=== PATIENT | female | born 1980 | race African-American/Black ===

== ENCOUNTER 2016-12-27 00:12 | Emergency (ER) | payer BC ==
[~2016-12-27] VITALS: Ht 167.6 cm; Wt 120.5 kg
[~2016-12-27 00:12] MED LIST: NO HOME MEDICATIONS
[2016-12-27 00:14] VITALS: TEMP 98.4
[2016-12-27] MEDS ORDERED: CEPHALEXIN250 M1 PO (00:20)
[2016-12-27 01:10] LABS: BASO % 0.6 % (0.0-2.0); EOS # 0.1 (0.0-0.7); EOS % 1.8 % (0-4.0); GRAN # 2.1 (1.4-6.5); GRAN % 43.1 % (42.2-75.2); LYMPH # 2.2 (1.2-3.4); LYMPH % 44.8 % (20.0-51.0); MEAN CELL VOLUME 90 fl (80.0-100.0); MEAN CORPUSCULAR HEMOGLOBIN 29 pg (27.0-31.0); MEAN CORPUSCULAR HGB CONC 33 g/dl (33.0-37.0); MEAN PLATELET VOLUME 9.9 fl (7.4-10.4); MONO # 0.5 (0.1-0.6); MONO % 9.5 % (1.7-9.3); PLATELET COUNT 296 K/mm3 (130-400); RED BLOOD COUNT 4.47 M/mm3 (4.10-5.30); REDCELL DISTRIBUTION WIDTH-CV 12.9 % (11.5-14.5)
[2016-12-27 01:14] LABS: PH 5 (5-8); SQUAMOUS EPITHELIAL 0-2 /hpf; URINE APPEARANCE Clear; URINE BACTERIA Rare /hpf; URINE BILIRUBIN Negative (NEGATIVE); URINE BLOOD 3+ (NEGATIVE); URINE COLOR Yellow; URINE GLUCOSE Negative (NEGATIVE); URINE KETONE Negative (NEGATIVE); URINE RBC >50 /hpf; URINE UROBILINOGEN Negative (NEGATIVE); URINE WBC 0-2 /hpf
[2016-12-27 01:22] LABS: ADJUSTED CALCIUM 8.8 mg/dL (8.4-10.2); ALANINE AMINOTRANSFERASE 67 U/L (9-52); ALBUMIN 4.4 gm/dL (3.5-5.0); ALKALINE PHOSPHATASE 60 U/L (50-136); ANION GAP 12 mmol/L (7-16); BILIRUBIN,TOTAL 0.4 mg/dL (0.0-1.0); BLOOD UREA NITROGEN 10 mg/dL (7-17); CALCIUM 9.1 mg/dL (8.4-10.2); CARBON DIOXIDE 24 mmol/L (22-30); CHLORIDE 104 mmol/L (98-107); CREATININE, serum 0.85 mg/dL (0.52-1.25); GLUCOSE 115 mg/dL (74-106); LIPASE 179 U/L (23-300); POTASSIUM 3.9 mmol/L (3.4-5.0); SODIUM 140 mmol/L (137-145); TOTAL PROTEIN 8.1 gm/dL (6.4-8.2)
[2016-12-27 01:23] LABS: C-REACTIVE PROTEIN < 0.5 mg/dL (0.0-0.9)
[2016-12-27] MEDS ORDERED: NORCO 325 MG-51 TAB PO (03:00)
[2016-12-27 03:06] VITALS: BP 147/83; PULSE 61
[2016-12-27 05:09] LABS: CHLAMYDIA/TRACH by PCR Female NOT DETECTED; NEISSERIA GON by PCR Female NOT DETECTED
== END 2016-12-27 03:18 | disposition home or self-care (01) ==
LOC: COL.ER 00:12
PROVIDERS: Emergency Medicine
DX: N93.8 Other specified abnormal uterine and vaginal bleeding (principal); Z98.890 Other specified postprocedural states
CPT/HCPCS: Q9967

== ENCOUNTER 2016-12-31 06:46 | Emergency (ER) | payer BC ==
[~2016-12-31] VITALS: Ht 167.6 cm; Wt 118.2 kg
[~2016-12-31 06:46] MED LIST changes: +CEPHALEXIN250 M1 PO; +NORCO 325 MG-51 TAB PO
[2016-12-31 06:48] VITALS: BP 130/91; PULSE 69; TEMP 98.4
[2016-12-31 07:49] LABS: BASO % 0.4 % (0.0-2.0); EOS # 0.1 (0.0-0.7); EOS % 2.2 % (0-4.0); GRAN # 1.6 (1.4-6.5); HEMATOCRIT 41.3 % (37.0-47.0); HEMOGLOBIN 13.6 g/dl (12.5-16.0); LYMPH # 2.5 (1.2-3.4); LYMPH % 53.8 % (20.0-51.0); MEAN CELL VOLUME 88 fl (80.0-100.0); MEAN CORPUSCULAR HEMOGLOBIN 29 pg (27.0-31.0); MEAN CORPUSCULAR HGB CONC 33 g/dl (33.0-37.0); MEAN PLATELET VOLUME 10.2 fl (7.4-10.4); MONO # 0.4 (0.1-0.6); MONO % 9.6 % (1.7-9.3); PLATELET COUNT 327 K/mm3 (130-400); RED BLOOD COUNT 4.67 M/mm3 (4.10-5.30); REDCELL DISTRIBUTION WIDTH-CV 12.8 % (11.5-14.5); WHITE BLOOD COUNT 4.6 K/mm3 (4.8-10.8)
[2016-12-31 08:01] LABS: CALCIUM 9.1 mg/dL (8.4-10.2); CREATININE, serum 0.83 mg/dL (0.52-1.25); POTASSIUM 3.5 mmol/L (3.4-5.0)
== END 2016-12-31 08:20 | disposition home or self-care (01) ==
LOC: COL.ER 06:46
PROVIDERS: Nurse Practitioner
DX: I80.8 Phlebitis and thrombophlebitis of other sites (principal); R20.2 Paresthesia of skin

== ENCOUNTER 2017-05-27 10:04 | Inpatient (IN) | payer BC ==
[~2017-05-27] VITALS: Ht 165.1 cm; Wt 127.6 kg
[2017-05-27 11:26] LABS: HEMATOCRIT 38.1 % (37.0-47.0); HEMOGLOBIN 12.6 g/dl (12.5-16.0); MEAN CELL VOLUME 89 fl (80.0-100.0); MEAN CORPUSCULAR HEMOGLOBIN 29 pg (27.0-31.0); MEAN CORPUSCULAR HGB CONC 33 g/dl (33.0-37.0); MEAN PLATELET VOLUME 9.7 fl (7.4-10.4); PLATELET COUNT 303 K/mm3 (130-400); REDCELL DISTRIBUTION WIDTH-CV 12.9 % (11.5-14.5)
[2017-05-27 11:39] LABS: BILIRUBIN,TOTAL 0.8 mg/dL (0.0-1.0); C-REACTIVE PROTEIN 3.5 mg/dL (0.0-0.9); CALCIUM 8.7 mg/dL (8.4-10.2); CREATININE, serum 2.05 mg/dL (0.52-1.25); MAGNESIUM 1.1 mg/dL (1.6-2.3); PHOSPHOROUS 1.9 mg/dL (2.5-4.5); POTASSIUM 4.1 mmol/L (3.4-5.0); TOTAL PROTEIN 7.4 gm/dL (6.4-8.2)
[2017-05-27 11:46] LABS: BAND 35 % (0-10); NEUTROPHILS 63 % (42.0-75.2)
[2017-05-27 11:47] LABS: STOMATOCYTE 3+
[2017-05-27 11:48] LABS: PLATELET ESTIMATE NORMAL (NORMAL)
[2017-05-27 11:49] LABS: INFLUENZA A NEGATIVE; INFLUENZA B NEGATIVE
[2017-05-27 14:27] LABS: ARTERIAL BLD GAS O2 SATURATION 96.3 % (92-100); ARTERIAL BLD GAS TCO2 CT 16.5; ARTERIAL BLOOD GAS BASE EXCESS -7.9 (-2-2); ARTERIAL BLOOD GAS HCO3 15.7 meq/L (22-26); ARTERIAL BLOOD GAS PCO2 27.1 mmHg (35-45); ARTERIAL BLOOD GAS PO2 86.2 mmHg (80-100); ARTERIAL BLOOD GAS pH 7.38 (7.35-7.45)
[2017-05-27 14:47] LABS: COLLECTION METHOD CLEAN CATCH
[2017-05-27 14:55] LABS: HYALINE CAST >12 /lpf; MUCOUS Present /lpf; PH 5 (5-8); URINE APPEARANCE Cloudy; URINE BACTERIA Moderate /hpf; URINE BILIRUBIN Negative (NEGATIVE); URINE BLOOD Negative (NEGATIVE); URINE COLOR Amber; URINE GLUCOSE 1+ (NEGATIVE); URINE KETONE Trace (NEGATIVE); URINE LEUKOCYTE ESTERASE Trace (NEGATIVE); URINE NITRATE Negative (NEGATIVE); URINE PROTEIN(semi-quant) 3+ (NEGATIVE)
[2017-05-27 16:21] LABS: CSF APPEARANCE HAZY; CSF COLOR PINK; CSF MONONUCLEAR 84 % (70-100); CSF POLYMORPHONUCLEAR 16 % (0-6); CSF RBC 3000 /mm3 (0-0)
[2017-05-27 16:22] LABS: CSF APPEARANCE HAZY; CSF COLOR PINK; CSF MONONUCLEAR 18 % (70-100); CSF POLYMORPHONUCLEAR 82 % (0-6); CSF RBC 3000 /mm3 (0-0)
[2017-05-27 16:24] LABS: GLUCOSE,CSF 107 mg/dL (40-70); TOTAL PROTEIN,CSF 21 mg/dL (15-45)
[2017-05-27 20:00] VITALS: BP 105/46; PULSE 110; TEMP 98
[2017-05-27 20:19] VITALS: BP 105/46; PULSE 110; TEMP 98
[2017-05-28] VITALS: BP 105/59; PULSE 117; TEMP 101.3
[2017-05-28 00:58] LABS: COLLECTION METHOD CLEAN CATCH
[2017-05-28 01:00] LABS: INR 1.4 (0.8-3.0); PROTHROMBIN TIME 15.8 SECONDS (9.7-12.8)
[2017-05-28 01:03] LABS: PARTIAL THROMBOPLASTIN TIME 28.8 SECONDS (26.0-37.0)
[2017-05-28 01:05] LABS: MUCOUS Present /lpf; PH 5 (5-8); SQUAMOUS EPITHELIAL 0-2 /hpf; URINE APPEARANCE Clear; URINE BACTERIA Occasional /hpf; URINE BILIRUBIN Negative (NEGATIVE); URINE BLOOD Negative (NEGATIVE); URINE COLOR Yellow; URINE GLUCOSE Negative (NEGATIVE); URINE KETONE Negative (NEGATIVE); URINE LEUKOCYTE ESTERASE Negative (NEGATIVE); URINE NITRATE Negative (NEGATIVE); URINE PROTEIN(semi-quant) Negative (NEGATIVE); URINE RBC 0-2 /hpf; URINE UROBILINOGEN Negative (NEGATIVE); URINE WBC 0-2 /hpf
[2017-05-28 01:09] LABS: CALCIUM 7.6 mg/dL (8.4-10.2); CREATININE, serum 1.58 mg/dL (0.52-1.25); POTASSIUM 4.2 mmol/L (3.4-5.0)
[2017-05-28 04:00] VITALS: BP 95/54; PULSE 112; TEMP 99.9
[2017-05-28 06:03] LABS: HEMATOCRIT 37.6 % (37.0-47.0); HEMOGLOBIN 12.1 g/dl (12.5-16.0); MEAN CELL VOLUME 90 fl (80.0-100.0); MEAN CORPUSCULAR HEMOGLOBIN 29 pg (27.0-31.0); MEAN CORPUSCULAR HGB CONC 32 g/dl (33.0-37.0); MEAN PLATELET VOLUME 9.8 fl (7.4-10.4); PLATELET COUNT 247 K/mm3 (130-400); RED BLOOD COUNT 4.17 M/mm3 (4.10-5.30); REDCELL DISTRIBUTION WIDTH-CV 13.2 % (11.5-14.5)
[2017-05-28 06:12] LABS: CALCIUM 7.5 mg/dL (8.4-10.2); CHOLESTEROL RISK RATIO 4.7; CREATININE, serum 1.51 mg/dL (0.52-1.25); MAGNESIUM 3.3 mg/dL (1.6-2.3); PHOSPHOROUS 3.4 mg/dL (2.5-4.5); POTASSIUM 4.6 mmol/L (3.4-5.0)
[2017-05-28 06:37] LABS: BAND 71 % (0-10); EOSINOPHIL 4 % (0-4); LYMPHOCYTE 2 % (20.0-51.0); NEUTROPHILS 19 % (42.0-75.2); PLATELET ESTIMATE NORMAL (NORMAL)
[2017-05-28 06:38] LABS: DOHLE BODIES PRESENT
[2017-05-28 09:00] VITALS: BP 112/52; PULSE 106; TEMP 99.2
[2017-05-28 12:30] VITALS: BP 116/56; PULSE 88; TEMP 99.3
[2017-05-28 16:03] VITALS: BP 113/60; PULSE 91; TEMP 97.7
[2017-05-28 19:10] VITALS: BP 109/31; PULSE 87; TEMP 98.7
[2017-05-29 03:37] VITALS: BP 122/74; PULSE 77; TEMP 98.6
[2017-05-29 07:00] LABS: BASO % 0.1 % (0.0-2.0); EOS # 0.4 (0.0-0.7); EOS % 5.9 % (0-4.0); GRAN # 5.8 (1.4-6.5); LYMPH # 0.8 (1.2-3.4); LYMPH % 10.7 % (20.0-51.0); MEAN CELL VOLUME 90 fl (80.0-100.0); MEAN CORPUSCULAR HGB CONC 33 g/dl (33.0-37.0); MEAN PLATELET VOLUME 10.2 fl (7.4-10.4); MONO # 0.4 (0.1-0.6); PLATELET COUNT 210 K/mm3 (130-400); RED BLOOD COUNT 3.54 M/mm3 (4.10-5.30); REDCELL DISTRIBUTION WIDTH-CV 13.4 % (11.5-14.5)
[2017-05-29 07:06] LABS: HEMATOCRIT 31.8 % (37.0-47.0); HEMOGLOBIN 10.4 g/dl (12.5-16.0); MEAN CORPUSCULAR HEMOGLOBIN 29 pg (27.0-31.0)
[2017-05-29 07:10] LABS: CALCIUM 7.5 mg/dL (8.4-10.2); CREATININE, serum 0.83 mg/dL (0.52-1.25); MAGNESIUM 2.5 mg/dL (1.6-2.3); POTASSIUM 4.3 mmol/L (3.4-5.0)
[2017-05-29 07:59] VITALS: BP 122/77; PULSE 73; TEMP 97.6
[2017-05-29 13:41] VITALS: BP 121/64
== END 2017-05-29 13:41 | disposition home or self-care (01) | DRG 682 ==
LOC: COL.ER 10:04 → ICU 15:39 → MEDICAL 05-28 17:30
PROVIDERS: Emergency Medicine; Internal Medicine
PROC: 009U3ZX Drainage of Spinal Canal, Percutaneous Approach, Diagnostic (ICD-10-PCS; principal; 2017-05-27)
DX: N17.9 Acute kidney failure, unspecified (principal); R65.11 Systemic inflammatory response syndrome (SIRS) of non-infectious origin with acute organ dysfunction; G03.0 Nonpyogenic meningitis; E87.1 Hypo-osmolality and hyponatremia; E87.2 Acidosis; T37.0X5A Adverse effect of sulfonamides, initial encounter; E83.42 Hypomagnesemia; E83.39 Other disorders of phosphorus metabolism; E11.9 Type 2 diabetes mellitus without complications; H10.33 Unspecified acute conjunctivitis, bilateral
CPT/HCPCS: 99223-AI; 99233-AI; 99238; A9539; A9540; J1200; J1644; J1956; J2405; J3370; J3475; J7030; J7050

== ENCOUNTER → 2017-06-05 | Outpatient (CLI) | payer BC ==
[2017-06-05 16:36] LABS: BASO # 0.1 (0.0-0.2); BASO % 0.9 % (0.0-2.0); EOS # 0.1 (0.0-0.7); EOS % 1.8 % (0-4.0); GRAN # 3.3 (1.4-6.5); GRAN % 49.4 % (42.2-75.2); HEMATOCRIT 40.8 % (37.0-47.0); HEMOGLOBIN 13.1 g/dl (12.5-16.0); LYMPH # 2.4 (1.2-3.4); LYMPH % 36.2 % (20.0-51.0); MEAN CELL VOLUME 91 fl (80.0-100.0); MEAN CORPUSCULAR HEMOGLOBIN 29 pg (27.0-31.0); MEAN CORPUSCULAR HGB CONC 32 g/dl (33.0-37.0); MEAN PLATELET VOLUME 9.9 fl (7.4-10.4); MONO # 0.7 (0.1-0.6); MONO % 10.5 % (1.7-9.3); PLATELET COUNT 425 K/mm3 (130-400); RED BLOOD COUNT 4.51 M/mm3 (4.10-5.30); REDCELL DISTRIBUTION WIDTH-CV 13.2 % (11.5-14.5); RETIC # 0.13 M/mm3 (0.02-0.16)
[2017-06-05 16:41] LABS: ALBUMIN 4.5 gm/dL (3.5-5.0); CALCIUM 9.5 mg/dL (8.4-10.2); CREATININE, serum 0.89 mg/dL (0.52-1.25); PHOSPHOROUS 2.5 mg/dL (2.5-4.5); POTASSIUM 3.8 mmol/L (3.4-5.0)
== END ==
LOC: COL.LAB 10:57
PROVIDERS: Family Medicine
DX: D64.9 Anemia, unspecified (principal); E83.39 Other disorders of phosphorus metabolism

== ENCOUNTER 2017-06-23 17:40 | Emergency (ER) | payer BC ==
[~2017-06-23] VITALS: Ht 165.1 cm; Wt 118.2 kg
[2017-06-23 19:12] LABS: COLLECTION METHOD CLEAN CATCH
[2017-06-23 19:15] LABS: BASO % 0.6 % (0.0-2.0); EOS # 0.1 (0.0-0.7); EOS % 1.8 % (0-4.0); GRAN # 2.6 (1.4-6.5); GRAN % 39.6 % (42.2-75.2); HEMATOCRIT 43.2 % (37.0-47.0); LYMPH # 3.1 (1.2-3.4); LYMPH % 46.8 % (20.0-51.0); MEAN CELL VOLUME 89 fl (80.0-100.0); MEAN CORPUSCULAR HEMOGLOBIN 29 pg (27.0-31.0); MEAN CORPUSCULAR HGB CONC 32 g/dl (33.0-37.0); MEAN PLATELET VOLUME 9.6 fl (7.4-10.4); MONO # 0.7 (0.1-0.6); MONO % 10.9 % (1.7-9.3); PLATELET COUNT 422 K/mm3 (130-400); RED BLOOD COUNT 4.83 M/mm3 (4.10-5.30); REDCELL DISTRIBUTION WIDTH-CV 13.1 % (11.5-14.5)
[2017-06-23 19:17] LABS: PH 6 (5-8); SQUAMOUS EPITHELIAL 0-2 /hpf; URINE APPEARANCE Clear; URINE BACTERIA Rare /hpf; URINE BILIRUBIN Negative (NEGATIVE); URINE BLOOD 3+ (NEGATIVE); URINE COLOR Straw; URINE GLUCOSE Negative (NEGATIVE); URINE KETONE Trace (NEGATIVE); URINE LEUKOCYTE ESTERASE Negative (NEGATIVE); URINE NITRATE Negative (NEGATIVE); URINE PROTEIN(semi-quant) Negative (NEGATIVE); URINE RBC 0-2 /hpf; URINE UROBILINOGEN Negative (NEGATIVE); URINE WBC 0-2 /hpf
[2017-06-23 19:22] LABS: PROTHROMBIN TIME 11.4 SECONDS (9.7-12.8)
[2017-06-23 19:33] LABS: ALBUMIN 5.3 gm/dL (3.5-5.0); BILIRUBIN,TOTAL 0.6 mg/dL (0.0-1.0); CALCIUM 9.9 mg/dL (8.4-10.2); CREATININE, serum 0.84 mg/dL (0.52-1.25); POTASSIUM 3.3 mmol/L (3.4-5.0); TOTAL PROTEIN 9.7 gm/dL (6.4-8.2)
[2017-06-23 19:59] LABS: INFLUENZA A NEGATIVE; INFLUENZA B NEGATIVE
[2017-06-23 20:00] LABS: TSH w REFLEX 0.831 uIU/mL (0.465-4.680)
[2017-06-23 20:18] VITALS: TEMP 98.3
[2017-06-23 22:53] VITALS: BP 159/91; PULSE 71
== END 2017-06-23 22:55 | disposition home or self-care (01) ==
LOC: COL.ER 17:40
PROVIDERS: Emergency Medicine
DX: E87.6 Hypokalemia (principal); R79.89 Other specified abnormal findings of blood chemistry; R20.2 Paresthesia of skin; R41.0 Disorientation, unspecified
CPT/HCPCS: J7030

== ENCOUNTER 2017-06-28 07:42 | Emergency (ER) | payer BC ==
[~2017-06-28] VITALS: Ht 165.1 cm; Wt 118.2 kg
[2017-06-28 08:58] LABS: BASO % 0.7 % (0.0-2.0); EOS % 0.5 % (0-4.0); GRAN # 3.1 (1.4-6.5); GRAN % 54.7 % (42.2-75.2); HEMATOCRIT 41.3 % (37.0-47.0); HEMOGLOBIN 13.6 g/dl (12.5-16.0); LYMPH # 1.9 (1.2-3.4); LYMPH % 32.6 % (20.0-51.0); MEAN CELL VOLUME 88 fl (80.0-100.0); MEAN CORPUSCULAR HEMOGLOBIN 29 pg (27.0-31.0); MEAN CORPUSCULAR HGB CONC 33 g/dl (33.0-37.0); MEAN PLATELET VOLUME 9.6 fl (7.4-10.4); MONO # 0.7 (0.1-0.6); MONO % 11.3 % (1.7-9.3); PLATELET COUNT 352 K/mm3 (130-400); RED BLOOD COUNT 4.72 M/mm3 (4.10-5.30); REDCELL DISTRIBUTION WIDTH-CV 12.9 % (11.5-14.5)
[2017-06-28 09:06] LABS: ALANINE AMINOTRANSFERASE 124 U/L (9-52); ALBUMIN 5.1 gm/dL (3.5-5.0); ALKALINE PHOSPHATASE 72 U/L (50-136); ANION GAP 15 mmol/L (7-16); AST,SGOT 91 U/L (15-37); BILIRUBIN,TOTAL 0.8 mg/dL (0.0-1.0); BLOOD UREA NITROGEN 5 mg/dL (7-17); CALCIUM 9.9 mg/dL (8.4-10.2); CARBON DIOXIDE 20 mmol/L (22-30); CHLORIDE 101 mmol/L (98-107); CREATININE, serum 0.86 mg/dL (0.52-1.25); GLUCOSE 144 mg/dL (74-106); LIPASE 93 U/L (23-300); MAGNESIUM 1.8 mg/dL (1.6-2.3); PHOSPHOROUS 3.4 mg/dL (2.5-4.5); SODIUM 136 mmol/L (137-145); TOTAL PROTEIN 9.1 gm/dL (6.4-8.2)
[2017-06-28 09:09] LABS: C-REACTIVE PROTEIN < 0.5 mg/dL (0.0-0.9)
[2017-06-28 09:24] LABS: ERYTHROCYTE SEDIMENTATION RATE 7 mm/hr (0-20)
[2017-06-28 09:32] LABS: COLLECTION METHOD CLEAN CATCH
[2017-06-28 09:40] LABS: PH 6 (5-8); SQUAMOUS EPITHELIAL 0-2 /hpf; URINE APPEARANCE Clear; URINE BACTERIA Occasional /hpf; URINE BILIRUBIN Negative (NEGATIVE); URINE BLOOD Negative (NEGATIVE); URINE COLOR Straw; URINE GLUCOSE Negative (NEGATIVE); URINE KETONE Negative (NEGATIVE); URINE LEUKOCYTE ESTERASE Negative (NEGATIVE); URINE NITRATE Negative (NEGATIVE); URINE PROTEIN(semi-quant) Negative (NEGATIVE); URINE RBC 0-2 /hpf; URINE UROBILINOGEN Negative (NEGATIVE)
[2017-06-28 10:19] VITALS: BP 145/97; PULSE 72; TEMP 98.3
== END 2017-06-28 10:16 | disposition home or self-care (01) ==
LOC: COL.ER 07:42
PROVIDERS: Physician Assistant
DX: R53.81 Other malaise (principal); E66.9 Obesity, unspecified; Z68.41 Body mass index [BMI] 40.0-44.9, adult

== ENCOUNTER → 2017-06-30 | Outpatient (CLI) | payer BC ==
[2017-06-30 17:22] LABS: CALCIUM 10.3 mg/dL (8.4-10.2); CREATININE, serum 0.86 mg/dL (0.52-1.25); MAGNESIUM 1.9 mg/dL (1.6-2.3); POTASSIUM 4.1 mmol/L (3.4-5.0)
== END ==
LOC: COL.LAB 15:36
PROVIDERS: Family Medicine
DX: M62.838 Other muscle spasm (principal); Z88.1 Allergy status to other antibiotic agents; Z88.2 Allergy status to sulfonamides

== ENCOUNTER 2017-07-08 06:09 | Emergency (ER) | payer BC ==
[~2017-07-08] VITALS: Ht 165.1 cm; Wt 105.9 kg
[2017-07-08 07:30] LABS: BASO % 0.7 % (0.0-2.0); EOS % 0.7 % (0-4.0); GRAN # 2.6 (1.4-6.5); GRAN % 47.7 % (42.2-75.2); HEMATOCRIT 39.3 % (37.0-47.0); LYMPH # 2.1 (1.2-3.4); LYMPH % 39.2 % (20.0-51.0); MEAN CELL VOLUME 88 fl (80.0-100.0); MEAN CORPUSCULAR HEMOGLOBIN 29 pg (27.0-31.0); MEAN CORPUSCULAR HGB CONC 33 g/dl (33.0-37.0); MEAN PLATELET VOLUME 9.5 fl (7.4-10.4); MONO # 0.6 (0.1-0.6); MONO % 11.5 % (1.7-9.3); PLATELET COUNT 327 K/mm3 (130-400); RED BLOOD COUNT 4.46 M/mm3 (4.10-5.30); REDCELL DISTRIBUTION WIDTH-CV 12.6 % (11.5-14.5)
[2017-07-08 07:45] LABS: ALANINE AMINOTRANSFERASE 85 U/L (9-52); ALBUMIN 4.5 gm/dL (3.5-5.0); ALKALINE PHOSPHATASE 61 U/L (50-136); ANION GAP 14 mmol/L (7-16); AST,SGOT 56 U/L (15-37); BILIRUBIN,TOTAL 0.6 mg/dL (0.0-1.0); BLOOD UREA NITROGEN 4 mg/dL (7-17); C-REACTIVE PROTEIN < 0.5 mg/dL (0.0-0.9); CALCIUM 9.7 mg/dL (8.4-10.2); CARBON DIOXIDE 22 mmol/L (22-30); CHLORIDE 102 mmol/L (98-107); CREATININE, serum 0.87 mg/dL (0.52-1.25); GLUCOSE 120 mg/dL (74-106); POTASSIUM 3.9 mmol/L (3.4-5.0); SODIUM 138 mmol/L (137-145)
[2017-07-08 07:46] LABS: COLLECTION METHOD CLEAN CATCH
[2017-07-08 07:52] LABS: MUCOUS Present /lpf; PH 6 (5-8); SQUAMOUS EPITHELIAL 0-2 /hpf; URINE APPEARANCE Clear; URINE BACTERIA Rare /hpf; URINE BILIRUBIN Negative (NEGATIVE); URINE BLOOD Negative (NEGATIVE); URINE COLOR Straw; URINE GLUCOSE Negative (NEGATIVE); URINE KETONE Negative (NEGATIVE); URINE LEUKOCYTE ESTERASE Negative (NEGATIVE); URINE NITRATE Negative (NEGATIVE); URINE PROTEIN(semi-quant) Negative (NEGATIVE); URINE RBC 0-2 /hpf; URINE UROBILINOGEN Negative (NEGATIVE)
[2017-07-08] MEDS ORDERED: ATIVAN 1MG T1 MG/TAB PO (09:26)
[2017-07-08 10:23] VITALS: BP 121/62; PULSE 113; TEMP 99.3
== END 2017-07-08 10:25 | disposition home or self-care (01) ==
LOC: COL.ER 06:09
PROVIDERS: Emergency Medicine
DX: F41.9 Anxiety disorder, unspecified (principal); G47.00 Insomnia, unspecified; E11.9 Type 2 diabetes mellitus without complications
CPT/HCPCS: J1200

== ENCOUNTER 2017-07-12 02:53 | Emergency (ER) | payer BC ==
[~2017-07-12] VITALS: Ht 165.1 cm; Wt 111.8 kg
[~2017-07-12 02:53] MED LIST changes: +ATIVAN 1MG T1 MG/TAB PO
[2017-07-12 02:57] VITALS: TEMP 98.9
[2017-07-12 04:31] LABS: BASO % 0.5 % (0.0-2.0); EOS # 0.1 (0.0-0.7); GRAN # 2.8 (1.4-6.5); GRAN % 47.4 % (42.2-75.2); HEMATOCRIT 38.2 % (37.0-47.0); HEMOGLOBIN 12.6 g/dl (12.5-16.0); LYMPH # 2.4 (1.2-3.4); LYMPH % 41.1 % (20.0-51.0); MEAN CELL VOLUME 88 fl (80.0-100.0); MEAN CORPUSCULAR HEMOGLOBIN 29 pg (27.0-31.0); MEAN CORPUSCULAR HGB CONC 33 g/dl (33.0-37.0); MEAN PLATELET VOLUME 9.6 fl (7.4-10.4); MONO # 0.6 (0.1-0.6); MONO % 9.8 % (1.7-9.3); PLATELET COUNT 336 K/mm3 (130-400); RED BLOOD COUNT 4.33 M/mm3 (4.10-5.30); REDCELL DISTRIBUTION WIDTH-CV 12.6 % (11.5-14.5)
[2017-07-12 04:46] LABS: BLOOD UREA NITROGEN 5 mg/dL (7-17); CREATININE, serum 0.88 mg/dL (0.52-1.25); GLUCOSE 105 mg/dL (74-106)
[2017-07-12 04:47] LABS: ALANINE AMINOTRANSFERASE 68 U/L (9-52); ALBUMIN 4.4 gm/dL (3.5-5.0); ALKALINE PHOSPHATASE 61 U/L (50-136); ANION GAP 11 mmol/L (7-16); AST,SGOT 46 U/L (15-37); BILIRUBIN,TOTAL 0.4 mg/dL (0.0-1.0); CALCIUM 9.3 mg/dL (8.4-10.2); CARBON DIOXIDE 21 mmol/L (22-30); CHLORIDE 107 mmol/L (98-107); MAGNESIUM 2.1 mg/dL (1.6-2.3); PHOSPHOROUS 3.6 mg/dL (2.5-4.5); POTASSIUM 3.6 mmol/L (3.4-5.0); SODIUM 139 mmol/L (137-145); TOTAL PROTEIN 8.4 gm/dL (6.4-8.2)
[2017-07-12 04:48] LABS: C-REACTIVE PROTEIN < 0.5 mg/dL (0.0-0.9)
[2017-07-12 05:02] LABS: ERYTHROCYTE SEDIMENTATION RATE 13 mm/hr (0-20)
[2017-07-12 05:53] VITALS: BP 154/82; PULSE 86
== END 2017-07-12 05:54 | disposition home or self-care (01) ==
LOC: COL.ER 02:53
PROVIDERS: Emergency Medicine
DX: R20.2 Paresthesia of skin (principal)

== ENCOUNTER → 2017-07-23 | Outpatient (CLI) | payer BC | LOC: COL.RAD 09:45 | DX: K80.20 Calculus of gallbladder without cholecystitis without obstruction (principal); K76.0 Fatty (change of) liver, not elsewhere classified ==

== ENCOUNTER → 2017-07-31 | Outpatient (CLI) | payer BC | LOC: COL.LAB 17:46 | DX: Z01.89 Encounter for other specified special examinations (principal) ==

== ENCOUNTER → 2017-08-07 | Outpatient (CLI) | payer BC | LOC: COL.LAB 09:54 | PROVIDERS: Family Medicine | DX: Z01.89 Encounter for other specified special examinations (principal) ==